=== PATIENT | male | born 1960 | race Two or more races ===

== ENCOUNTER → 2018-01-25 | Emergency (ER) | payer OTHER ==
[~2018-01-25] VITALS: Ht 182.9 cm; Wt 83.9 kg
== END | disposition home or self-care (01) ==
LOC: ER 07:36
DX: J06.9 Acute upper respiratory infection, unspecified (principal); B34.9 Viral infection, unspecified

== ENCOUNTER 2020-04-24 11:15 | Emergency (ER) | payer OTHER ==
[~2020-04-24] VITALS: Ht 182.9 cm; Wt 86.2 kg
[2020-04-24] MEDS ORDERED: DICLOFENAC POTA50 MG PO (13:33)
== END 2020-04-24 14:31 | disposition home or self-care (01) ==
LOC: ER 11:15
DX: S83.8X1A Sprain of other specified parts of right knee, initial encounter (principal); X50.9XXA Other and unspecified overexertion or strenuous movements or postures, initial encounter; Y93.89 Activity, other specified; Y92.89 Other specified places as the place of occurrence of the external cause; Y99.8 Other external cause status

== ENCOUNTER 2021-03-08 05:24 | Emergency (ER) | payer OTHER ==
[~2021-03-08] VITALS: Ht 182.9 cm; Wt 88.5 kg
[~2021-03-08 05:24] MED LIST: DICLOFENAC POTA50 MG PO
[2021-03-08] MEDS ORDERED: ORPHENADRINE C100 MG PO (07:28)
[2021-03-08] MEDS ORDERED: KETO10TA2 PO (07:28)
== END 2021-03-08 07:37 | disposition home or self-care (01) ==
LOC: ER 05:24
DX: S13.4XXA Sprain of ligaments of cervical spine, initial encounter (principal); S39.012A Strain of muscle, fascia and tendon of lower back, initial encounter; S50.01XA Contusion of right elbow, initial encounter; V49.9XXA Car occupant (driver) (passenger) injured in unspecified traffic accident, initial encounter; Y93.89 Activity, other specified; Y92.488 Other paved roadways as the place of occurrence of the external cause; Y99.8 Other external cause status

== ENCOUNTER 2023-01-13 07:00 | Emergency (ER) | payer OTHER ==
[~2023-01-13] VITALS: Ht 182.9 cm; Wt 89.4 kg
[~2023-01-13 07:00] MED LIST changes: +KETO10TA2 PO; +ORPHENADRINE C100 MG PO
[2023-01-13] MEDS ORDERED: AMLODIPINE-OLM1 EAC2 (07:20)
== END 2023-01-13 09:03 | disposition home or self-care (01) ==
LOC: ER 07:00
DX: F41.8 Other specified anxiety disorders (principal); I10 Essential (primary) hypertension

== ENCOUNTER 2023-10-08 08:29 | Outpatient (CLI) | payer OTHER ==
[~2023-10-08 08:29] MED LIST changes: +AMLODIPINE-OLM1 EAC2
== END 2023-10-08 08:39 | disposition home or self-care (01) ==
LOC: SONOGRAMA 08:29
PROVIDERS: ATTEND General Practice
DX: R10.9 Unspecified abdominal pain (principal)

== ENCOUNTER 2023-11-11 18:27 | Inpatient (IN) | payer OTHER ==
[~2023-11-11] VITALS: Ht 172.7 cm; Wt 88.5 kg
[2023-11-11] MEDS ORDERED: ZESTRIL5 MG PO (18:54)
[2023-11-11 23:18] LABS: PH,URINE 6.5 (5.0-8.0); URINE APPEARANCE Clear; URINE BILIRRUBIN Negative (NEGATIVE); URINE BLOOD Negative; URINE COLOR Yellow; URINE GLUCOSE Negative (NEGATIVE); URINE LEUKOCYTE Negative; URINE NITRATE Negative; URINE PROTEIN Negative (NEGATIVE)
[2023-11-11 23:21] LABS: HEMATOCRIT 48.4 % (39.0-48.0); MEAN CELL VOLUME 90.2 fL (80.0-100.00); MEAN CORPUSCULAR HGB CONC 33.7 g/dl (32.0-36.0); PLATELET COUNT 194 K/uL (150-450); RED BLOOD COUNT 5.37 M/uL (4.00-6.00); RED CELL DISTRIBUTION WIDTH 14.1 % (11.5-14.5)
[2023-11-11 23:22] LABS: URINE EPITHELIAL CELLS 3.6 uL (0.0-38.8); URINE RBC 2.7 uL (0.0-20.8); URINE WBC 2.1 uL (0.0-23.2)
[2023-11-11 23:39] LABS: INR 1.04; PARTIAL THROMBOPLASTIN TIME 26.3 SECONDS (22.0-34.0); PROTHROMBIN TIME 10.9 SECONDS (9.0-11.5)
[2023-11-11 23:42] LABS: HEMOGLOBIN 16.3 g/dL (13-16.00); MEAN CORPUSCULAR HEMOGLOBIN 30.3 pg (27.00-32.0)
[2023-11-11 23:46] LABS: CALCIUM 9.3 mg/dL (8.5-10.1); CREATININE SERUM 1.18 mg/dL (0.70-1.30); GFR 61.95; POTASSIUM 3.97 mEq/L (3.5-5.1)
[2023-11-15 06:31] LABS: HEMATOCRIT 46.4 % (39.0-48.0); MEAN CELL VOLUME 89.2 fL (80.0-100.00); MEAN CORPUSCULAR HEMOGLOBIN 30.8 pg (27.00-32.0); MEAN CORPUSCULAR HGB CONC 34.5 g/dl (32.0-36.0); PLATELET COUNT 158 K/uL (150-450); RED CELL DISTRIBUTION WIDTH 14.1 % (11.5-14.5)
[2023-11-15 07:10] LABS: INR 1.09; PROTHROMBIN TIME 11.4 SECONDS (9.0-11.5)
[2023-11-15 07:16] LABS: ALBUMIN 3.1 gm/dL (3.4-5.0); BILIRUBIN TOTAL 0.63 mg/dL (0.3-1.2); CALCIUM 8.7 mg/dL (8.5-10.1); CREATININE SERUM 1.04 mg/dL (0.70-1.30); GFR 71.67; GLOBULINA 3.4 G/DL (2.4-3.5); POTASSIUM 3.77 mEq/L (3.5-5.1); TOTAL PROTEIN 6.5 gm/dL (6.4-8.2)
== END 2023-11-15 11:31 | disposition designated cancer center or children's hospital (05) | DRG 282 ==
LOC: ER 18:28 → SEC-K 11-12 10:40 → MEDJ 11-12 10:40
PROVIDERS: General Practice; Internal Medicine; ADMIT Internal Medicine; ATTEND Internal Medicine
PROC: B020ZZZ Computerized Tomography (CT Scan) of Brain (ICD-10-PCS; principal; 2023-11-11)
PROC: B030ZZZ Magnetic Resonance Imaging (MRI) of Brain (ICD-10-PCS; 2023-11-13)
DX: I16.1 Hypertensive emergency (principal); I21.4 Non-ST elevation (NSTEMI) myocardial infarction; I10 Essential (primary) hypertension; R55 Syncope and collapse
CPT/HCPCS: 70544

== ENCOUNTER 2024-10-12 11:22 | Emergency (ER) | payer OTHER ==
[~2024-10-12] VITALS: Ht 182.9 cm; Wt 81.6 kg
[~2024-10-12 11:22] MED LIST changes: +ZESTRIL5 MG PO
[2024-10-12] MEDS ORDERED: KETOROLAC TROMETHAMINE 60 MG VIAL IM ONE (14:05)
[2024-10-12] MEDS ORDERED: TAMSULOSIN HCL 0.4 MG CAP PO ONE (14:05)
[2024-10-12] MEDS ORDERED: MECLIZINE HCL 12.5 MG TABLET PO ONE (14:05)
[2024-10-12] MEDS ORDERED: LIDOCAINE HCL 1% 10ML VIAL ONE (14:05)
[2024-10-12] MEDS ORDERED: CEFTRIAXONE SODIUM 1,000 MG VIAL ONE (14:06)
[2024-10-12 14:55] LABS: URINE APPEARANCE Clear; URINE BILIRRUBIN Negative (NEGATIVE); URINE BLOOD Negative; URINE COLOR Yellow; URINE GLUCOSE Negative (NEGATIVE); URINE KETONE Negative (NEGATIVE); URINE LEUKOCYTE Negative; URINE NITRATE Negative; URINE PROTEIN Negative (NEGATIVE)
[2024-10-12 14:55] LABS: HEMATOCRIT 46.8 % (39.0-48.0); HEMOGLOBIN 15.9 g/dL (13-16.00); MEAN CELL VOLUME 89.7 fL (80.0-100.00); MEAN CORPUSCULAR HEMOGLOBIN 30.5 pg (27.00-32.0); PLATELET COUNT 183 K/uL (150-450); RED BLOOD COUNT 5.22 M/uL (4.00-6.00); RED CELL DISTRIBUTION WIDTH 13.8 % (11.5-14.5)
[2024-10-12 14:59] LABS: URINE BACTERIA 6.1 uL (0.0-1933); URINE CAST 0.14 uL (0.0-1.40); URINE EPITHELIAL CELLS 2.6 uL (0.0-38.8); URINE RBC 3.3 uL (0.0-20.8); URINE WBC 1.4 uL (0.0-23.2)
[2024-10-12 15:21] LABS: ALBUMIN 3.6 gm/dL (3.4-5.0); BILIRUBIN TOTAL 0.45 mg/dL (0.3-1.2); CREATININE SERUM 1.09 mg/dL (0.70-1.30); GFR 67.68; GLOBULINA 3.6 G/DL (2.4-3.5); POTASSIUM 3.52 mEq/L (3.5-5.1); TOTAL PROTEIN 7.2 gm/dL (6.4-8.2)
== END 2024-10-12 16:06 | disposition home or self-care (01) ==
LOC: ER 11:24
PROVIDERS: General Practice
DX: R42 Dizziness and giddiness (principal)
CPT/HCPCS: 36415; 74240; 96372; 99283; J1885

== ENCOUNTER 2024-11-13 11:08 | Outpatient (CLI) | payer OTHER | END 2024-11-13 11:26 | disposition home or self-care (01) | LOC: TOM 11:08 | PROVIDERS: ATTEND Internal Medicine | DX: M54.40 Lumbago with sciatica, unspecified side (principal); R51.9 Headache, unspecified ==